=== PATIENT | male | born 1970 ===

== ENCOUNTER 2018-12-21 23:37 | Emergency (ER) | payer OTHER ==
[~2018-12-21] VITALS: Ht 172.7 cm; Wt 83.9 kg
[~2018-12-21 23:37] MED LIST: CATAFLAM50 MG PO; PROTONIX20 MG; TIZANIDINE HCL2 MG PO
== END 2018-12-22 08:00 | disposition home or self-care (01) ==
LOC: ER 23:37
DX: K57.90 Diverticulosis of intestine, part unspecified, without perforation or abscess without bleeding (principal); R10.32 Left lower quadrant pain